=== PATIENT | female | born 1975 | race Two or more races ===

== ENCOUNTER 2021-05-02 18:40 | Emergency (ER) | payer OTHER ==
[~2021-05-02] VITALS: Ht 157.5 cm; Wt 65.8 kg
[~2021-05-02 18:40] MED LIST: ORPH100T PO
== END 2021-05-02 21:38 | disposition home or self-care (01) ==
LOC: ER 18:40
DX: R07.89 Other chest pain (principal); M94.0 Chondrocostal junction syndrome [Tietze]